=== PATIENT | male | born 1965 | race Caucasian/White ===

== ENCOUNTER 2017-04-26 19:41 | Observation (INO) | payer OTHER ==
[~2017-04-26] VITALS: Ht 175.3 cm; Wt 92.5 kg
[~2017-04-26 19:41] MED LIST: ABILIFY15 MG PO; ABILIFY5 MG PO; AMBIEN5 MG PO; ATARAX,VISTARIL25 MG PO; CITALOPRAM HBR40 MG PO; CLEOCIN300 MG PO; GLUCOPHAGE1000 MG PO; GLUCOTROL10 MG PO; HYDROXYZINE PAM50 MG PO; LIPITOR40 MG PO; LORCET 5-325 M1 EACH PO; METFORMIN HCL500 MG PO; MINIPRESS5 MG PO; MOBIC7.5 MG PO; NO MEDS; RISPERDAL0.5 MG PO; RISPERIDONE0.5 MG PO; ULTRACET1 TABLET PO; VITAMIN D400 UNIT PO; ZOFRAN ODT4 MG PO; ZOLOFT100 MG PO; ZOLPIDEM TARTRAT5 MG PO
[2017-04-26 20:19] LABS: HEMATOCRIT 52.1 % (38.0-50.0); MCH 30.5 PG (29.0-34.0); MCHC 35.5 G/DL (30.0-36.0); MCV 85.8 FL (86-99); MEAN PLAT.VOLUME 10.8 uM^3 (9.0-12.4); PLATELET COUNT 245 K/uL (156-360); RBC DIS.WIDTH-CV 13.1 % (11.8-14.6); RBC DIS.WIDTH-SD 39.7 % (39-53); RED BLOOD COUNT 6.07 M/uL (4.00-5.50); WHITE BLOOD COUNT 8.6 K/uL (4.1-10.2)
[2017-04-26 20:41] LABS: CHLORIDE 90 mEq/L (99-109); POTASSIUM 3.6 mEq/L (3.7-5.4); SODIUM 133 mEq/L (136-147)
[2017-04-26 20:45] LABS: ANION GAP 18 MEQ/L (2-14); TOTAL BILIRUBIN 1.7 mg/dL (0.0-1.0)
[2017-04-26 20:47] LABS: ALKALINE PHOSPHATASE 146 IU/L (3-129); GFR ESTIMATE (CALCULATED) 52 mL/min/
[2017-04-26 20:48] LABS: UREA NITROGEN (BUN) 8 mg/dL (9-23)
[2017-04-26 20:49] LABS: GLUCOSE 708 mg/dL (70-99)
[2017-04-26 20:51] LABS: ADD MIUA? NO; BILIRUBIN NEGATIVE; BLOOD NEGATIVE; COLOR STRAW ((YELLOW)); GLUCOSE (STRIP) >=500; KETONES NEGATIVE; LEUKOCYTES NEGATIVE; NITRITE NEGATIVE; PROTEIN (STRIP) NEGATIVE; SPECIFIC GRAVITY 1.037 (1.000-1.030); UCUL ADDED? NO; UROBILINOGEN 0.2 MG/DL (0.2-1.0)
[2017-04-26 21:13] LABS: LIPASE 178 U/L (1.0-51.0)
[2017-04-26 21:18] LABS: TROP-I INTERPRETATION NEGATIVE; TROPONIN-I < 0.01 ng/mL (0.0-0.30)
[2017-04-26 22:25] LABS: POINT-OF-CARE METER ID UU14100415
[2017-04-27 00:17] LABS: POINT-OF-CARE METER ID UU14100415
[2017-04-27 01:10] VITALS: BP 143/80
[2017-04-27 05:16] LABS: C DIFF TOXIN NEGATIVE (NEGATIVE)
[2017-04-27 05:47] LABS: PROBE CHECK PASS; SPECIMEN PROCESSING CONTROL PASS
[2017-04-27 06:03] LABS: ALKALINE PHOSPHATASE 101 IU/L (3-129); ANION GAP 10 MEQ/L (2-14); CHLORIDE 103 MEQ/L (99-109); GFR ESTIMATE (CALCULATED) > 59 mL/min/; GLUCOSE 314 mg/dL (70-99); HEMATOCRIT 41.4 % (38.0-50.0); MCHC 35.3 G/DL (30.0-36.0); MCV 85.2 FL (86-99); MEAN PLAT.VOLUME 11.1 uM^3 (9.0-12.4); PLAT.SUFFICIENCY ADEQUATE; RBC DIS.WIDTH-CV 13.1 % (11.8-14.6); RBC DIS.WIDTH-SD 39.8 % (39-53); SAMPLE HEMOLYSIS CHECK 0; SAMPLE ICTERIC CHECK 0; SAMPLE LIPEMIA CHECK 0; SODIUM 139 MEQ/L (136-147); TOTAL BILIRUBIN 1.4 MG/DL (0.0-1.0); UREA NITROGEN (BUN) 8 mg/dL (9-23); WHITE BLOOD COUNT 7.7 K/uL (4.1-10.2)
[2017-04-27 06:11] LABS: PLATELET COUNT 168 K/uL (156-360); RED BLOOD COUNT 4.86 M/uL (4.00-5.50)
[2017-04-27 08:00] VITALS: BP 130/89
[2017-04-27 08:39] LABS: POINT-OF-CARE METER ID UU13113831
[2017-04-27 11:36] VITALS: BP 173/84
[2017-04-27 12:42] LABS: POINT-OF-CARE METER ID UU14162513
== END 2017-04-27 14:00 | disposition home or self-care (01) ==
LOC: EME 19:41 → 5WEST 23:48 → EDOF 23:48 → ENRESERV 23:50 → EDOF 04-27 01:01 → 5WEST 04-27 01:02
PROVIDERS: Internal Medicine; Nurse Practitioner Family
DX: R10.9 Unspecified abdominal pain (principal); E11.65 Type 2 diabetes mellitus with hyperglycemia; E86.0 Dehydration; R11.2 Nausea with vomiting, unspecified; R19.7 Diarrhea, unspecified; R07.9 Chest pain, unspecified; G43.909 Migraine, unspecified, not intractable, without status migrainosus; F41.9 Anxiety disorder, unspecified; F31.9 Bipolar disorder, unspecified; F12.10 Cannabis abuse, uncomplicated; Z82.49 Family history of ischemic heart disease and other diseases of the circulatory system; Z83.3 Family history of diabetes mellitus; Z82.5 Family history of asthma and other chronic lower respiratory diseases; Z80.9 Family history of malignant neoplasm, unspecified; Z87.891 Personal history of nicotine dependence; Z88.0 Allergy status to penicillin; Z88.8 Allergy status to other drugs, medicaments and biological substances
CPT/HCPCS: 80053; 81003; 82010; 82948; 83690; 84484; 85027; 87493; 93005; 99281; 99285; G0378; J1644; J1815; J2405; J2765; J7030

== ENCOUNTER 2017-11-04 07:26 | Day surgery (SDC) | payer OTHER ==
[~2017-11-04] VITALS: Ht 175.3 cm; Wt 90.7 kg
[~2017-11-04 07:26] MED LIST changes: +AMBIEN10 MG PO; +MOBIC15 MG PO
== END 2017-11-04 08:48 | disposition home or self-care (01) ==
LOC: PAIN 07:26
PROVIDERS: Anesthesiology Pain Medicine
DX: M47.816 Spondylosis without myelopathy or radiculopathy, lumbar region (principal); M51.36 Other intervertebral disc degeneration, lumbar region; M48.061 Spinal stenosis, lumbar region without neurogenic claudication; M46.1 Sacroiliitis, not elsewhere classified; F41.9 Anxiety disorder, unspecified; E78.5 Hyperlipidemia, unspecified; E11.9 Type 2 diabetes mellitus without complications; Z79.84 Long term (current) use of oral hypoglycemic drugs; Z88.0 Allergy status to penicillin; Z79.891 Long term (current) use of opiate analgesic
CPT/HCPCS: 82948; J1030; J2250; J3010; S0020

== ENCOUNTER 2017-11-11 07:29 | Day surgery (SDC) | payer OTHER ==
[~2017-11-11] VITALS: Ht 175.3 cm; Wt 95.3 kg
== END 2017-11-11 09:12 | disposition home or self-care (01) ==
LOC: PAIN 07:29
PROVIDERS: Anesthesiology Pain Medicine
DX: M47.816 Spondylosis without myelopathy or radiculopathy, lumbar region (principal); M51.36 Other intervertebral disc degeneration, lumbar region; M48.061 Spinal stenosis, lumbar region without neurogenic claudication; M46.1 Sacroiliitis, not elsewhere classified; F41.9 Anxiety disorder, unspecified; E78.5 Hyperlipidemia, unspecified; E11.9 Type 2 diabetes mellitus without complications; Z79.891 Long term (current) use of opiate analgesic; Z87.891 Personal history of nicotine dependence; Z79.84 Long term (current) use of oral hypoglycemic drugs; Z88.0 Allergy status to penicillin
CPT/HCPCS: 82948; J1030; J2250; J3010; S0020

== ENCOUNTER 2017-12-30 08:50 | Day surgery (SDC) | payer OTHER ==
[~2017-12-30] VITALS: Ht 177.8 cm; Wt 93.0 kg
[~2017-12-30 08:50] MED LIST changes: +BUSPAR10 MG PO; -GLUCOPHAGE1000 MG PO; +GLUCOPHAGE500 MG PO
[2017-12-30 10:05] LABS: BENZODIAZEPINES, URINE SCREEN POSITIVE (200 ng/mL)
== END 2017-12-30 10:17 | disposition home or self-care (01) ==
LOC: PAIN 08:50
PROVIDERS: Anesthesiology Pain Medicine
DX: M47.816 Spondylosis without myelopathy or radiculopathy, lumbar region (principal); M51.36 Other intervertebral disc degeneration, lumbar region; M48.061 Spinal stenosis, lumbar region without neurogenic claudication; F41.9 Anxiety disorder, unspecified; E11.9 Type 2 diabetes mellitus without complications; E78.5 Hyperlipidemia, unspecified; Z87.891 Personal history of nicotine dependence; Z79.891 Long term (current) use of opiate analgesic; Z79.84 Long term (current) use of oral hypoglycemic drugs
CPT/HCPCS: 80306 90; 82948; J1030; J2250; S0020

== ENCOUNTER 2018-01-13 08:57 | Day surgery (SDC) | payer OTHER ==
[~2018-01-13] VITALS: Ht 177.8 cm; Wt 93.0 kg
== END 2018-01-13 09:55 | disposition home or self-care (01) ==
LOC: PAIN 08:57 → SDC 09:00 → PAIN 09:55
PROVIDERS: Anesthesiology Pain Medicine
DX: M47.816 Spondylosis without myelopathy or radiculopathy, lumbar region (principal); M51.36 Other intervertebral disc degeneration, lumbar region; M48.061 Spinal stenosis, lumbar region without neurogenic claudication; E78.5 Hyperlipidemia, unspecified; E11.9 Type 2 diabetes mellitus without complications; F41.9 Anxiety disorder, unspecified; Z79.84 Long term (current) use of oral hypoglycemic drugs; Z87.891 Personal history of nicotine dependence
CPT/HCPCS: 82948; J1030; J2250; S0020